=== PATIENT | male | born 1995 | race Hispanic/Latino ===

== ENCOUNTER 2022-03-01 16:57 | Emergency (ER) | payer OTHER ==
[~2022-03-01] VITALS: Ht 172.7 cm; Wt 95.2 kg
[2022-03-01] MEDS ORDERED: ACETAMINOPHEN-1 EAC1 PO (23:09)
== END 2022-03-01 23:24 | disposition home or self-care (01) ==
LOC: ED 16:57
DX: S05.01XA Injury of conjunctiva and corneal abrasion without foreign body, right eye, initial encounter (principal)
CPT/HCPCS: 99283; A9270